=== PATIENT | female | born 1990 | race Caucasian/White ===

== ENCOUNTER 2017-01-13 07:10 | Emergency (ER) | payer SELFPAY ==
[~2017-01-13] VITALS: Ht 160 cm; Wt 100.0 kg
[~2017-01-13 07:10] MED LIST: ONDA4TAB7 PO; PROM25SU8 PO; PROT40TA PO
[2017-01-13 07:13] VITALS: BP 163/98; PULSE 83; RESP 16; TEMP 97.8; O2SAT 99
[2017-01-13 07:21] VITALS: BP 149/84; PULSE 90; RESP 20; O2SAT 98
[2017-01-13] MEDS ORDERED: SODIUM CHLOR 0.9% 1000 ML INJ 1,000 ML IV SCH (07:25)
[2017-01-13] MEDS ORDERED: ONDANSETRON HCL 4 MG/2 ML VIAL IVP ONE (07:30)
[2017-01-13] MEDS ORDERED: SODIUM CHLOR 0.9% 1000 ML INJ 1,000 ML IV ONE (07:30)
[2017-01-13] MEDS ORDERED: SODIUM CHLORIDE 0.9% FLUSH 10 ML FLUSH IV FLUSH PRN (07:30)
[2017-01-13] MEDS ORDERED: FAMOTIDINE 20 MG/2 ML VIAL IV PUSH ONE (07:30)
[2017-01-13] MEDS ORDERED: methylPREDNISolone SOD SUCC 125 MG/2 ML VIAL IV PUSH ONE (07:30)
[2017-01-13 07:31] VITALS: BP 149/84; PULSE 101; RESP 18; O2SAT 98
--- NOTE | 2017-01-13 07:33 | PD ---
HPI Chief Complaint: Cold / Flu Symptoms Time Seen by Provider: 07:21 Travel History International Travel<30 days: No Contact w/Intl Traveler<30days: No Traveled to known affect area: No History of Present Illness HPI Patient is a 26-year-old female who presents to emergency room with complaints of not feeling well. Reports that for the past 8 days, she's been coughing, reports that she is bringing up thick productive green mucous. Her throat is hurting her, reports postnasal drip with increased nasal congestion. Patient reports her significant other was sick with similar symptoms prior to her onset of symptoms. Patient reports that for the past few days, she has been feeling nauseous, hasn't been vomiting and having diarrhea. She has greater than 14 episodes of emesis yesterday. Patient denies any recent travels or trips. Patient reports that she has not been on antibiotics recently. Patient denies any headaches. Denies fevers, reports chills. Denies chest pain or shortness of breath. Patient with no other complaints. 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: Yes (HEADACHES) Psychiatric: Yes (ANXIETY) Reproductive: No Respiratory: No ?: Not Past Surgical History Body Medical Devices: NONE Cholecystectomy: Yes Joint Replacement: No Pacemaker: No Family History Family History: Negative Social History Alcohol Use: No Tobacco Use: No Substance Use: No Allergies-Medications (Allergen,Severity, Reaction): Coded Allergies: No Known Allergies (Verified , 01/13/17) Reported Meds & Prescriptions Reported Meds & Active Scripts Active Promethazine-Codeine Liq 6.25-10 Mg/5 Ml Syrp 10 Ml PO Q6H PRN 7 Days Tessalon Perles (Benzonatate) 100 Mg Cap 100 Mg PO TID PRN Azithromycin 500 Mg Tab 500 Mg PO DAILY Proair Hfa 8.5 GM Inh (Albuterol Sulfate) 90 Mcg/Act Aer 2 Puff INH Q4-6H PRN 108 mcg/actuation Prednisone 20 Mg Tab 20 Mg PO BID 5 Days Reported Paragard 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 (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)) 1 Iud Iud Review of Systems General / Constitutional: Positive: Chills, No: Fever Eyes: No: Visual changes HENT: Positive: Sore Throat, Rhinorrhea, Congestion, No: Headaches, Neck Pain Cardiovascular: No: Chest Pain or Discomfort, Diaphoresis Respiratory: Positive: Cough, No: Shortness of Breath Gastrointestinal: No: Abdominal Pain Genitourinary: No: Dysuria Musculoskeletal: No: Pain Skin: No Rash Neurologic: No: Weakness Psychiatric: No: Depression Endocrine: No: Polydipsia Hematologic/Lymphatic: No: Easy Bruising Physical Exam Narrative GENERAL: mild distress SKIN: Focused skin assessment warm/dry. HEAD: Atraumatic. Normocephalic. EYES: Pupils equal and round. No scleral icterus. No injection or drainage. ENT: No nasal bleeding or discharge. Mucous membranes pink and moist. Increased sinus tenderness, sinus congestion NECK: Trachea midline. No JVD. CARDIOVASCULAR: Regular rate and rhythm. No murmur appreciated. RESPIRATORY: No accessory muscle use. Clear to auscultation. Breath sounds equal bilaterally. GASTROINTESTINAL: Abdomen soft, non-tender, nondistended. Hepatic and splenic margins not palpable. MUSCULOSKELETAL: No obvious deformities. No clubbing. No cyanosis. No edema. NEUROLOGICAL: Awake and alert. No obvious cranial nerve deficits. Motor grossly within normal limits. Normal speech. PSYCHIATRIC: Appropriate mood and affect; insight and judgment normal. Data Data Last Documented VS Vital Signs Date Time Temp Pulse Resp B/P Pulse Ox O2 Delivery O2 Flow Rate FiO2 01/13/17 07:31 101 18 149/84 98 Room Air 01/13/17 07:13 97.8 Orders Complete Blood Count With Diff (01/13/17 07:25) Comprehensive Metabolic Panel (01/13/17 07:25) Influenzae A/B Antigen (01/13/17 07:25) Urinalysis - C+S If Indicated (01/13/17 07:25) Chest, Pa & Lat (01/13/17 07:25) Iv Access Insert/Monitor (01/13/17 07:25) Oximetry (01/13/17 07:25) Ed Urine Pregnancytest Poc (01/13/17 07:25) Ondansetron Inj (Zofran Inj) (01/13/17 07:30) Sodium Chlor 0.9% 1000 Ml Inj (Ns 1000 M (01/13/17 07:25) Sodium Chloride 0.9% Flush (Ns Flush) (01/13/17 07:30) Famotidine Inj (Pepcid Inj) (01/13/17 07:30) Sodium Chlor 0.9% 1000 Ml Inj (Ns 1000 M (01/13/17 07:30) Methylprednisolone So Succ Inj (Solumedr (01/13/17 07:30) Azithromycin (Zithromax) (01/13/17 09:15) Ceftriaxone Inj (Rocephin Inj) (01/13/17 09:15) Albuterol Neb (Albuterol Neb) (01/13/17 09:15) Labs Laboratory Tests Test 01/13/17 01/13/17 07:45 08:23 White Blood Count 17.0 TH/MM3 Red Blood Count 4.90 MIL/MM3 Hemoglobin 15.1 GM/DL Hematocrit 42.5 % Mean Corpuscular Volume 86.6 FL Mean Corpuscular Hemoglobin 30.9 PG Mean Corpuscular Hemoglobin 35.7 % Concent Red Cell Distribution Width 13.0 % Platelet Count 377 TH/MM3 Mean Platelet Volume 9.2 FL Neutrophils (%) (Auto) 77.1 % Lymphocytes (%) (Auto) 15.4 % Monocytes (%) (Auto) 6.5 % Eosinophils (%) (Auto) 0.6 % Basophils (%) (Auto) 0.4 % Neutrophils # (Auto) 13.1 TH/MM3 Lymphocytes # (Auto) 2.6 TH/MM3 Monocytes # (Auto) 1.1 TH/MM3 Eosinophils # (Auto) 0.1 TH/MM3 Basophils # (Auto) 0.1 TH/MM3 CBC Comment DIFF FINAL Differential Comment Sodium Level 136 MEQ/L Potassium Level 3.5 MEQ/L Chloride Level 100 MEQ/L Carbon Dioxide Level 27.1 MEQ/L Anion Gap 9 MEQ/L Blood Urea Nitrogen 4 MG/DL Creatinine 0.79 MG/DL Estimat Glomerular Filtration 89 ML/MIN Rate Random Glucose 111 MG/DL Calcium Level 9.0 MG/DL Total Bilirubin 0.7 MG/DL Aspartate Amino Transf 22 U/L (AST/SGOT) Alanine Aminotransferase 26 U/L (ALT/SGPT) Alkaline Phosphatase 89 U/L Total Protein 9.1 GM/DL Albumin 3.9 GM/DL Urine Color YELLOW Urine Turbidity HAZY Urine pH 6.5 Urine Specific Hansen 1.016 Urine Protein 30 mg/dL Urine Glucose (UA) NEG mg/dL Urine Ketones NEG mg/dL Urine Occult Blood NEG Urine Nitrite NEG Urine Bilirubin NEG Urine Urobilinogen LESS THAN 2.0 MG/DL Urine Leukocyte Esterase SMALL Urine RBC 1 /hpf Urine WBC 8 /hpf Urine Squamous Epithelial 24 /hpf Cells Urine Bacteria OCC /hpf Urine Mucus FEW /lpf Microscopic Urinalysis Comment CULT NOT INDICATED MDM Medical Decision Making Medical Screen Exam Complete: Yes Emergency Medical Condition: Yes Interpretation(s) Vital Signs Date Time Temp Pulse Resp B/P Pulse Ox O2 Delivery O2 Flow Rate FiO2 01/13/17 07:20 20 98 Room Air 01/13/17 07:13 97.8 83 16 163/98 99 Differential Diagnosis Pneumonia, bronchitis, influenza, viral syndrome, electrolyte abnormality Narrative Course Patient is a 26-year-old female who presents to emergency room with complaints of not feeling well for the past 8 days. She has had increased cough and congestion for the past 8 days and now has n/v/d. Patient does appear congested on evaluation. Plan to obtain x-ray of chest to evaluate for possible pneumonia. Will obtain labs to check for electrolyte abnormalities and dehydration given her recent nausea, vomiting diarrhea. Patient's abdomen is soft, nontender, nondistended, no peritoneal signs, plan to hydrate and give antiemetics and perform serial abdominal exams. Vital Signs Date Time Temp Pulse Resp B/P Pulse Ox O2 Delivery O2 Flow Rate FiO2 01/13/17 07:31 101 18 149/84 98 Room Air 01/13/17 07:21 90 20 149/84 98 Nasal Cannula 01/13/17 07:20 20 98 Room Air 01/13/17 07:13 97.8 83 16 163/98 99 Microbiology Date/Time Procedure Status Source Growth 01/13/17 07:45 Influenza Types A,B Antigen ([facility]) - Final Complete Nasal Washing NEGATIVE FOR FLU A AND B ANTIGEN.... Laboratory Tests Test 01/13/17 01/13/17 07:45 08:23 White Blood Count 17.0 TH/MM3 (4.0-11.0) Red Blood Count 4.90 MIL/MM3 (4.00-5.30) Hemoglobin 15.1 GM/DL (11.6-15.3) Hematocrit 42.5 % (35.0-46.0) Mean Corpuscular Volume 86.6 FL (80.0-100.0) Mean Corpuscular Hemoglobin 30.9 PG (27.0-34.0) Mean Corpuscular Hemoglobin 35.7 % Concent (32.0-36.0) Red Cell Distribution Width 13.0 % (11.6-17.2) Platelet Count 377 TH/MM3 (150-450) Mean Platelet Volume 9.2 FL (7.0-11.0) Neutrophils (%) (Auto) 77.1 % (16.0-70.0) Lymphocytes (%) (Auto) 15.4 % (9.0-44.0) Monocytes (%) (Auto) 6.5 % (0.0-8.0) Eosinophils (%) (Auto) 0.6 % (0.0-4.0) Basophils (%) (Auto) 0.4 % (0.0-2.0) Neutrophils # (Auto) 13.1 TH/MM3 (1.8-7.7) Lymphocytes # (Auto) 2.6 TH/MM3 (1.0-4.8) Monocytes # (Auto) 1.1 TH/MM3 (0-0.9) Eosinophils # (Auto) 0.1 TH/MM3 (0-0.4) Basophils # (Auto) 0.1 TH/MM3 (0-0.2) CBC Comment DIFF FINAL Differential Comment Sodium Level 136 MEQ/L (136-145) Potassium Level 3.5 MEQ/L (3.5-5.1) Chloride Level 100 MEQ/L (98-107) Carbon Dioxide Level 27.1 MEQ/L (21.0-32.0) Anion Gap 9 MEQ/L (5-15) Blood Urea Nitrogen 4 MG/DL (7-18) Creatinine 0.79 MG/DL (0.50-1.00) Estimat Glomerular Filtration 89 ML/MIN (>89) Rate Random Glucose 111 MG/DL (74-106) Calcium Level 9.0 MG/DL (8.5-10.1) Total Bilirubin 0.7 MG/DL (0.2-1.0) Aspartate Amino Transf 22 U/L (15-37) (AST/SGOT) Alanine Aminotransferase 26 U/L (10-53) (ALT/SGPT) Alkaline Phosphatase 89 U/L (45-117) Total Protein 9.1 GM/DL (6.4-8.2) Albumin 3.9 GM/DL (3.4-5.0) Urine Color YELLOW (YELLW/STRAW) Urine Turbidity HAZY (CLEAR) Urine pH 6.5 (5.0-8.5) Urine Specific Hansen 1.016 (1.002-1.035) Urine Protein 30 mg/dL (NEG-TRACE) Urine Glucose (UA) NEG mg/dL (NEG) Urine Ketones NEG mg/dL (NEG) Urine Occult Blood NEG (NEG) Urine Nitrite NEG (NEG) Urine Bilirubin NEG (NEG) Urine Urobilinogen LESS THAN 2.0 MG/DL (LESS THAN 2.0) Urine Leukocyte Esterase SMALL (NEG) Urine RBC 1 /hpf (0-3) Urine WBC 8 /hpf (0-5) Urine Squamous Epithelial 24 /hpf (0-5) Cells Urine Bacteria OCC /hpf (NONE) Urine Mucus FEW /lpf (OCC) Microscopic Urinalysis Comment CULT NOT INDICATED Last Impressions Chest X-Ray 01/13/17 0732 Signed Impressions: Service Date/Time: , January 13, 2017 07:53 - CONCLUSION: No acute cardiopulmonary abnormality is identified. Lionel Eastman MD Patient reevaluated, patient reports that she is feeling much better at this time. Reviewed all labs and all studies with patient detail. Plan to treat patient for acute bronchitis, patient will follow-up with her primary care doctor, signs and symptoms of when to return to the emergency room was reviewed patient in detail. Patient appreciative of care. Diagnosis Primary Impression: Bronchitis Patient Instructions: General Instructions Departure Forms: Tests/Procedures, Work Release Enter return to work date: Jan 17, 2017 Additional Instructions: Please follow-up with primary care doctor in 2-3 days Take all antibiotics as prescribed Return to emergency room if symptoms worsen or progress Return to the emergency room as needed Med/Other Pt SpecificInfo: Prescription(s) given Scripts Promethazine-Codeine Liq 6.25-10 Mg/5 Ml Syrp10 Ml PO Q6H PRN (COUGH AND/OR COLD SYMPTOMS) 7 Days Ref 0 Prov:Maeve Maloney DO 01/13/17 Benzonatate (Tessalon Perles)100 Mg [id number] Mg PO TID PRN (COUGH) #30 CAP Ref 0 Prov:Maeve Maloney DO 01/13/17 Azithromycin 500 Mg [id number] Mg PO DAILY #5 TAB Ref 0 Prov:Maeve Maloney DO 01/13/17 Albuterol 8.5 GM Inh (Proair Hfa 8.5 GM Inh)90 Mcg/Act Aer2 Puff INH Q4-6H PRN ( SHORTNESS OF BREATH) #1 INHALER Ref 0 108 mcg/actuation Prov:Maeve Maloney DO 01/13/17 Prednisone 20 Mg Tab20 Mg PO BID 5 Days Ref 0 Prov:Maeve Maloney DO 01/13/17 Disposition: 01 DISCHARGE HOME Condition: Stable Maeve Maloney DO Jan 13, 2017 07:33
[2017-01-13] MEDS ORDERED: PARAIUD (07:50)
[2017-01-13 07:59] LABS: AUTOMATED NEUTROPHIL # 13.1 TH/MM3 (1.8-7.7); BASOPHIL # 0.1 TH/MM3 (0-0.2); BASOPHIL % 0.4 % (0.0-2.0); EOSINOPHIL # 0.1 TH/MM3 (0-0.4); EOSINOPHIL % 0.6 % (0.0-4.0); HEMATOCRIT 42.5 % (35.0-46.0); HEMO FLAGS DIFF FINAL; LYMPH % 15.4 % (9.0-44.0); LYMPHOCYTE # 2.6 TH/MM3 (1.0-4.8); MEAN CELL VOLUME 86.6 FL (80.0-100.0); MEAN CORPUSCULAR HEMOGLOBIN 30.9 PG (27.0-34.0); MEAN CORPUSCULAR HGB CONC 35.7 % (32.0-36.0); MONO % 6.5 % (0.0-8.0); NEUT % 77.1 % (16.0-70.0); PLATELET COUNT 377 TH/MM3 (150-450)
--- NOTE | 2017-01-13 08:05 | RADRPT ---
EXAM DATE/TIME: 01/13/2017 07:53 [facility] COMPARISON: No previous studies available for comparison. INDICATIONS : Cough and shortness of breath for 8 days. MEDICAL HISTORY : None. SURGICAL HISTORY : Cholecystectomy. ENCOUNTER: Initial ACUITY: 1 week PAIN SCORE: 0/10 LOCATION: Bilateral chest FINDINGS: PA and lateral views of the chest demonstrate a normal-sized cardiac silhouette. There is no effusion , consolidation, or pneumothorax. The bones and soft tissues demonstrate no acute abnormality. Bilate ral nipple piercings are present. There is a 4 mm BB shaped metallic foreign body overlying the left upper quadrant. CONCLUSION: No acute cardiopulmonary abnormality is identified. Lionel Eastman MD on January 13, 2017 at 8:02 Board Certified Radiologist. This report was verified electronically.
[2017-01-13 08:12] LABS: ANION GAP 9 MEQ/L (5-15); AST (GOT) 22 U/L (15-37); BICARBONATE 27.1 MEQ/L (21.0-32.0); BLOOD UREA NITROGEN 4 MG/DL (7-18); CHLORIDE 100 MEQ/L (98-107); GLOMERULAR FILTRATION RATE 89 ML/MIN (>89); POTASSIUM 3.5 MEQ/L (3.5-5.1); SODIUM (NA) 136 MEQ/L (136-145)
[2017-01-13 08:13] LABS: ALT (GPT) 26 U/L (10-53)
[2017-01-13 08:16] LABS: ALKALINE PHOSPHATASE 89 U/L (45-117); TOTAL BILIRUBIN ADULT 0.7 MG/DL (0.2-1.0)
[2017-01-13 08:48] LABS: BACTERIA, URINE OCC /hpf; BLOOD, URINE NEG (NEG); GLUCOSE,URINE NEG (NEG); KETONE, URINE NEG (NEG); MUCUS URINE FEW /lpf (OCC); NITRITE,URINE NEG (NEG); PH, URINE 6.5 (5.0-8.5); SQUAMOUS EPITHELIAL CELL URINE 24 /hpf (0-5); URINE COLOR YELLOW (YELLW/STRAW)
[2017-01-13 08:49] LABS: COMMENT (UR) CULT NOT INDICATED; CULTURE IF INDICATED CULT NOT INDICATED
[2017-01-13] MEDS ORDERED: PROM6.256 PO (09:07)
[2017-01-13] MEDS ORDERED: ALBUAER3 INH (09:07)
[2017-01-13] MEDS ORDERED: PRED20 PO (09:07)
[2017-01-13] MEDS ORDERED: BENZ100 PO (09:07)
[2017-01-13] MEDS ORDERED: AZIT500T2 PO (09:07)
[2017-01-13] MEDS ORDERED: AZITHROMYCIN 250 MG TAB PO ONE (09:15)
[2017-01-13] MEDS ORDERED: RESP: ALBUTEROL 2.5 MG/3 ML NEB (SCH) INH ONE (09:15)
[2017-01-13] MEDS ORDERED: cefTRIAXone INJ 1,000 MG in SODIUM CHLORIDE 0.9% INJ 100 ML IV ONE (09:15)
[2017-01-13 09:22] VITALS: BP 136/72; PULSE 96; RESP 18; TEMP 98.9; O2SAT 97
== END 2017-01-13 10:26 | disposition home or self-care (01) ==
LOC: NEPC 07:10
DX: J40 Bronchitis, not specified as acute or chronic (principal); R06.02 Shortness of breath
CPT/HCPCS: 71020; 80053; 81001; 84703; 85025; 87804; 94664; 96361; 96365; 96375; 99284; J0696; J2405; J2930; J7030; J7613